=== PATIENT | female | born 1990 | race Caucasian/White ===

== ENCOUNTER 2017-07-11 01:09 | Emergency (ER) | payer SELFPAY ==
[2017-07-11] MEDS ORDERED: Acetaminophen/HYDROcodone 325-10 MG Tab PO ONE (01:10)
[2017-07-11] MEDS ORDERED: Ketorolac 30 MG/ML SDV IM ONE (01:47)
--- NOTE | 2017-07-11 01:51 | EDM.PDOC ---
ED HPI GENERAL MEDICAL PROBLEM - General Chief Complaint: Upper Extremity Injury/Pain Stated Complaint: [id number] SOMETHING WRONG WITH SHOULDER Time Seen by Provider: 07/11/17 01:47 Source of Information: Reports: Patient History Limitations: Reports: No Limitations - History of Present Illness INITIAL COMMENTS - FREE TEXT/NARRATIVE: pulled back muscle few days ago didn't really get bad till tonight hurts to take a breath and pain shoots straight front. Left Shoulder Pain Score (Numeric/FACES): 9 - Related Data Allergies Allergy/AdvReac Type Severity Reaction Status Date / Time No Known Allergies Allergy Verified 07/11/17 01:18 Home Meds: Home Meds busPIRone [Buspar] 15 mg PO BID 07/11/17 [History] Past Medical History Gastrointestinal History: Reports: Cholelithiasis [employer] History: Reports: - Past Surgical History GI Surgical History: Reports: Cholecystectomy Female Surgical History: Reports: D&C Social & Family History - Tobacco Use Smoking Status *Q: Current Every Day Smoker Years of Tobacco use: 14 Packs/Tins Daily: 0.7 Second Hand Smoke Exposure: Yes - Recreational Drug Use Recreational Drug Use: No Review of Systems - Review of Systems Review Of Systems: ROS reveals no pertinent complaints other than HPI. ED EXAM, GENERAL - Physical Exam Exam: See Below Exam Limited By: No Limitations General Appearance: Alert, WD/WN, Mild Distress, Other (discomfort) Ears: Hearing Grossly Normal Throat/Mouth: Normal Voice, No Airway Compromise Head: Atraumatic Neck: Non-Tender, Full Range of Motion Respiratory/Chest: No Respiratory Distress Cardiovascular: Regular Rate, Rhythm GI/Abdominal: Soft, Non-Tender Back Exam: Muscle Spasm, Paraspinal Tenderness, Other (left interscap/rhomboid spasm R/P without radiculits) Neurological: Alert, Oriented, Normal Cognition, Normal Gait, No Motor/Sensory Deficits Psychiatric: Tearful Skin Exam: Warm, Dry, Normal Color Lymphatic: No Adenopathy Course - Vital Signs Last Recorded V/S: Last Vital Signs Temp 36.4 C 07/11/17 01:14 Pulse 62 07/11/17 01:14 Resp 18 07/11/17 01:14 BP 118/62 07/11/17 01:14 Pulse Ox 100 07/11/17 01:14 - Orders/Labs/Meds Meds: Medications Discontinued Medications Generic Name Dose Route Start Last Admin Trade Name Praneethq PRN Reason Stop Dose Admin Ketorolac Tromethamine 30 mg 07/11/17 01:47 07/11/17 01:53 Toradol IM 07/11/17 01:48 30 mg ONETIME ONE Administration - Re-Assessments/Exams Free Text/Narrative Re-Assessment/Exam: 07/11/17 02:18 s/p IM toradol = somewhat better but wants to go home to sleep Departure - Departure Time of Disposition: 02:18 Disposition: Home, Self-Care 01 Condition: Good Clinical Impression: Interscapular pain - Discharge Information Instructions: Shoulder Pain, [id number] Forms: ED Department Discharge Additional Instructions: 1) avoid bending lifting straining next 5 to 7 days 2) try ice or heat to sore areas 3) recheck as needed rx given; flexeril 10mg bid prn x 12 vicodin 5/325mg bid prn x 6
[2017-07-11] MEDS ORDERED: Acetaminophen/HYDROcodone 325-10 MG Tab ONE (02:19)
== END 2017-07-11 02:23 | disposition home or self-care (01) ==
LOC: DL.ED 01:09
DX: M25.512 Pain in left shoulder (principal); F17.210 Nicotine dependence, cigarettes, uncomplicated
CPT/HCPCS: 96372; 99283; A9270; J1885

== ENCOUNTER → 2020-08-08 19:18 | Emergency (ER) | payer SELFPAY | END | disposition left against medical advice (07) | LOC: DL.ED 19:18 | DX: T78.40XA Allergy, unspecified, initial encounter (principal); Z53.21 Procedure and treatment not carried out due to patient leaving prior to being seen by health care provider ==